=== PATIENT | female | born 1980 | race American Indian/Alaskan Native ===

== ENCOUNTER 2019-05-30 11:52 | Inpatient (IN) | payer OTHER ==
[2019-05-30 13:35] LABS: Bilirubin,Urine NEG (Negative); Blood,Urine NEG (Negative); Color,Urine Yellow (Yellow); Mucus,Urine FEW /HPF; Protein,Urine <15 mg/dL mg/dL (Negative); WBC,Urine < 1.0 /HPF (0.0-6.0)
[2019-05-30 13:39] LABS: Hematocrit 36.3 % (30.3-42.9); Hemoglobin 12.3 gm/dl (10.1-14.3); Mean Corpuscular HGB Conc 34 % (30-34); Mean Corpuscular Volume 94 fl (79-97); Platelet Count 201 K/mm3 (140-440); Red Blood Count 3.88 M/mm3 (3.65-5.03); Red Cell Distribution Width 14.1 % (13.2-15.2)
[2019-05-30 13:57] LABS: Alanine Aminotransferase 11 units/L (7-56); Uric Acid 5.4 mg/dL (3.5-7.6)
[2019-05-30] MEDS ORDERED: NALOXONE 0.4 MG/1 ML INJ IV PRN ×2 (15:56→19:24)
[2019-05-30] MEDS ORDERED: WITCH HAZEL/ GLYCERIN PAD TP PRN ×2 (15:56→19:24)
[2019-05-30] MEDS ORDERED: LANOLIN/ZINC/DIMETHICONE (LANSINOH) 7 GM TP PRN ×2 (15:56→19:24)
[2019-05-30] MEDS ORDERED: OXYTOCIN 20 UNIT/1000ML DRIP 20 UNITS/1,000 ML BAG IV SCH ×3 (16:00→20:00)
[2019-05-30] MEDS ORDERED: BICITRA ORAL LIQD 30ML PO ONE (16:01)
[2019-05-30] MEDS ORDERED: METOCLOPRAMIDE 10 MG/2 ML INJ IV ONE (16:01)
[2019-05-30] MEDS ORDERED: FAMOTIDINE 20 MG/2 ML INJ IV ONE (16:01)
--- NOTE | 2019-05-30 16:59 | Anesthesia Day of Surgery ---
Anesthesia Day of Surgery - Day of Surgery Patient Examined: Yes Patient H&P Reviewed: Yes Patient is NPO: Yes
--- NOTE | 2019-05-30 16:59 | Anesthesia Consultation ---
Anesthesia Consult and Med Hx Date of service: 05/30/19 - Airway Anesthetic Teeth Evaluation: Poor ROM Head & Neck: Adequate Mental/Hyoid Distance: Adequate Mallampati Class: Class II Intubation Access Assessment: Probably Good - Pulmonary Exam CTA: Yes - Cardiac Exam Cardiac Exam: RRR - Pre-Operative Health Status ASA Pre-Surgery Classification: ASA2 Proposed Anesthetic Plan: Spinal - Pulmonary Hx Asthma: No - Cardiovascular System Hx Hypertension: No - Central Nervous System Hx Seizures: No Hx Psychiatric Problems: No - Endocrine Hx Renal Disease: No Hx Hypothyroidism: No Hx Hyperthyroidism: No - Hematic Hx Anemia: No Hx Sickle Cell Disease: No - Other Systems Hx Alcohol Use: No
[2019-05-30] MEDS ORDERED: LACTATED RINGERS 1,000 ML IV SCH (17:00)
[2019-05-30] MEDS ORDERED: ceFAZolin/Water 2 GM/20 ML 2 GM/20 ML SYRINGE IV NR (17:00)
[2019-05-30 17:09] LABS: Basophils % (Auto) 0.3 % (0.0-1.8); Eosinophils % (Auto) 1.1 % (0.0-4.3); Hematocrit 39.6 % (30.3-42.9); Hemoglobin 13.3 gm/dl (10.1-14.3); Lymphocytes # (Auto) 1.9 K/mm3 (1.2-5.4); Mean Corpuscular HGB Conc 34 % (30-34); Mean Corpuscular Volume 94 fl (79-97); Monocytes # (Auto) 0.4 K/mm3 (0.0-0.8); Monocytes % (Auto) 9.6 % (0.0-7.3); Platelet Count 215 K/mm3 (140-440)
--- NOTE | 2019-05-30 17:35 | History and Physical Report ---
History of Present Illness Date of examination: 05/30/19 Chief complaint: Repeat C Section History of present illness: Pt is a 38yo BF EDC 06/05/19; EGA 39 1/7 weeks presents to L&D from the office due to elevated BP's - 144/99 and having irregular contractions. She was scheduled for a Repeat C Section in 3 days, but will proceed with a Repeat C Section today. She received care at [facility] since 8 weeks and co-managed by [facility] for AMA and previous C Section. records are available and GBS is Negative. Past History Past Medical History: hypertension Past Surgical History: appendectomy, BUNDLER/uterine surgery (Laparoscopy), section BUNDLER History: herpes (on suppression) Family/Genetic History: none Social history: no significant social history, single - Obstetrical History Expected Date of Delivery: 06/05/19 Actual Gestation: 39 Week(s) 1 Day(s) : 3 Medications and Allergies Allergies Allergy/AdvReac Type Severity Reaction Status Date / Time No Known Allergies Allergy Verified 05/30/19 12:56 Active Meds: Active Medications Oxytocin/Sodium Chloride (Pitocin/Ns 20 Unit/1000ml Drip) 20 units in 1,000 mls @ 250 mls/hr IV DIRECT LILIBETH Oxytocin/Sodium Chloride (Pitocin/Ns 20 Unit/1000ml Drip) 20 units in 1,000 mls @ 0 mls/hr IV TITR LILIBETH Lactated Ringer's (Lactated Ringers) 1,000 mls @ 2,250 mls/hr IV PREOP LILIBETH Stop: 05/31/19 17:27 Cefazolin Sodium (Ancef/Sterile Water 2 Gm/20 Ml) 2 gm in 20 mls @ 80 mls/hr IV PREOP NR; Protocol Stop: 05/30/19 23:59 Multi-Ingredient Ointment (Lansinoh) 1 applic TP PRN PRN PRN Reason: dryness/cracking Naloxone HCl (Naloxone) 0.1 mg IV Q2MIN PRN PRN Reason: Res Rate </= 8 or 02 SAT < 92% Sodium Chloride (Sodium Chloride Flush Syringe 10 Ml) 10 ml IV PRN NR Stop: 05/31/19 15:59 Witch Nicole/Glycerin (Tucks Pad) 1 each TP PRN PRN PRN Reason: Hemorrhoids/cleansing/soothing Review of Systems All systems: negative - Vital Signs Vital signs: Vital Signs Pulse BP 67 140/94 05/30/19 12:33 05/30/19 12:33 Temp Pulse Resp BP Pulse Ox 98 F 73 20 163/81 05/30/19 12:56 05/30/19 17:23 05/30/19 12:56 05/30/19 17:23 - Physical Exam Breasts: Positive: deferred Cardiovascular: Regular rate Lungs: Positive: Clear to auscultation Abdomen: Positive: normal appearance Genitourinary (Female): Positive: normal external genitalia Vagina: Positive: normal moisture Uterus: Positive: enlarged Extremities: Positive: normal - Obstetrical FHR: category 1 Uterine Contraction Monitor Mode: External Uterine Contraction Pattern: Irregular Uterine Tone Measurement Phase: Contraction Uterine Contraction Intensity: Mild Results Result Diagrams: 05/30/19 16:27 05/30/19 13:19 Abnormal lab results 05/30/19 05/30/19 05/30/19 Range/Units 13:19 13:19 16:27 WBC 4.0 L 4.4 L (4.5-11.0) K/mm3 Lymph % (Auto) 43.0 H (13.4-35.0) % [place] % (Auto) 9.6 H (0.0-7.3) % Creatinine 0.5 L (0.7-1.2) mg/dL All other labs normal. Assessment and Plan - Patient Problems (1) 39 weeks gestation of Onset Date: 05/30/19 Current Visit: Yes Status: Acute Plan to address problem: A: IUP @ 39 1/7 weeks Previous C Section induced hypertension AMA P: Admit to L&D for Repeat C Section Manage elevated BP's (2) Previous section Onset Date: 05/30/19 Current Visit: Yes Status: Chronic (3) PIH ( induced hypertension) Onset Date: 05/30/19 Current Visit: Yes Status: Acute Qualifiers: Trimester: third trimester Qualified Code(s): O13.3 - Gestational [-induced] hypertension without significant proteinuria, third trimester (4) AMA (advanced maternal age) multigravida 35+ Onset Date: 05/30/19 Current Visit: Yes Status: Chronic Qualifiers: Trimester: third trimester Qualified Code(s): O09.523 - Supervision of elderly multigravida, third trimester
[2019-05-30] MEDS ORDERED: SODIUM CHLORIDE 0.9% IRR 1,500 ML BOTTLE IR ONE (18:00)
[2019-05-30] MEDS ORDERED: DEXMEDETOMIDINE 200 MCG/2 ML VIAL IV ONE (18:00)
[2019-05-30] MEDS ORDERED: BUPIVACAINE/PF (0.5%) 5 MG/1 ML 30 ML VIAL INFILTRATI ONE (18:00)
[2019-05-30] MEDS ORDERED: WATER FOR IRRIG STERILE 1,500 ML BOTTLE IR ONE (18:00)
[2019-05-30] MEDS ORDERED: OXYTOCIN 10 UNIT/1 ML INJ ONE (18:00)
[2019-05-30] MEDS ORDERED: KETOROLAC 30 MG/1 ML INJ ONE (18:00)
[2019-05-30] MEDS ORDERED: PHENYLEPHRINE/NS 1,000 MCG/10 ML SYRINGE (OR USE) IV ONE (18:09)
--- NOTE | 2019-05-30 18:48 | Operative Report ---
Operative Report Operative Report: Date of procedure: 05/30/2019 Pre-operative diagnosis: 1. Intrauterine at 39 1/7 weeks 2. Previ ous C Section 3. induced Hypertension 4. AMA Post-operative diagnosis: same Procedure name(s): Repeat low transverse section Surgeon: Adan Gaines MD Staffing Program Manager: None Anesthesia: Spinal anesthesia by León Reed CRNA EBL: 800 mL's Findings: A 3286 gm female infant Apgars 8 at 1 minute 9 at 5 minutes. Clear amniotic fluid. Normal uterus. Normal tubes and ovaries bilaterally. Procedure: After the patient was prepped and draped in usual sterile fashion, and after satisfactory level of spinal anesthesia was obtained, the skin knife was used to make a transverse skin incision through the previous skin scar. The incision was incised down to layer of the fascia, which was nicked in the midline and extended laterally using the Bovie cautery. The rectus muscles were dissected off the rectus fascia both superiorly and inferiorly. The rectus bellies in the midline, and the peritoneum was entered under direct visualization. The peritoneal incision was extended superiorly and inferiorly. A bladder flap was created and the bladder blade was then placed. The uterus was scored in a curvilinear linear fashion, entered in the midline revealing clear amniotic fluid. The infant's head was delivered onto the surgical field, and the oropharynx and nasopharynx were bulb suctioned. The rest of the 's body was delivered, cord was doubly clamped and cut and the infant was handed to the awaiting respiratory team. Cord blood was then obtained. The placenta was manually removed from the uterus, and the uterus removed from its normal anatomical position. After gentle uterine lavage, the incision was inspected and found to be without extensions. It was then closed in 2 layers using 0 Vicryl suture in a running interlocking fashion, the second layer imbricating the first. After good hemostasis was achieved, copious amounts or irrigation was performed, and the gutters were suctioned free of blood and blood clots. The Tisseal sealant was sprayed across the uterine incision and excellent hemostasis was assured. The peritoneum was re-approximated using 3-0 Vicryl suture in a running interlocking fashion, and then the rectus muscles were re-approximated using 3-0 Vicryl suture in a [id number] configuration. The fascia was then re-approximated using 0 Vicryl suture in running interlocking fashion. The subcutaneous layer was made hemostatic using Bovie cautery, and the skin edges re-approximated using 4-0 Vicryl suture in a sub- cuticular fashion. Patient tolerated the procedure well was transported to recovery in stable condition.
--- NOTE | 2019-05-30 19:03 | Post Anesthesia Evaluation ---
- Post Anesthesia Evaluation Patient Participated: Yes Airway Patent: Yes Stable Respiratory Function: Yes Nausea/Vomiting: No Temp > 96.8F: Yes Pain Manageable: Yes Adequeate Hydration: Yes Anesthesia Complications: No Block Receding Appropriately: Yes
[2019-05-30] MEDS ORDERED: NalbUPHINE 10 MG/1 ML INJ IV PRN (19:04)
[2019-05-30] MEDS ORDERED: ONDANSETRON 4 MG/2 ML INJ IV PRN (19:24)
[2019-05-30] MEDS ORDERED: HYDROCORTISONE 25 MG RECTAL SUPP PR PRN (19:24)
[2019-05-30] MEDS ORDERED: SIMETHICONE 80 MG CHEW TAB PO PRN (19:24)
[2019-05-30] MEDS ORDERED: HYDROcodone/ACETAMINOPHEN 5-325 MG TAB PO PRN (19:24)
[2019-05-30] MEDS ORDERED: D5W/LACTATED RINGERS 1,000 ML IV SCH (20:00)
[2019-05-30] MEDS: hydrALAZINE 20 MG/1 ML INJ IV PRN (20:09)
[2019-05-30] MEDS: ACETAMINOPHEN 325 MG TAB PO SCH (20:10)
[2019-05-30] MEDS: KETOROLAC 30 MG/1 ML INJ IV PRN (22:53)
[2019-05-31] MEDS ORDERED: KETOROLAC 30 MG/1 ML INJ IV SCH
[2019-05-31] MEDS: ACETAMINOPHEN 325 MG TAB PO SCH (01:10)
[2019-05-31] MEDS: ceFAZolin/NS 1 GM/50 ML 1 GM/50 ML BAG IV SCH ×2 (01:55→10:00)
[2019-05-31] MEDS: KETOROLAC 30 MG/1 ML INJ IV PRN (05:03)
[2019-05-31] MEDS ORDERED: TETANUS,DIPH,PERTUSS(ACELL) VACCINE 0.5 ML SYRINGE IM ONE (06:00)
[2019-05-31] MEDS ORDERED: MEASLES, MUMPS & RUBELLA 12,500 UNIT/0.5 ML VACCINE SUB-Q ONE (06:00)
[2019-05-31] MEDS: oxyCODONE /ACETAMINOPHEN 5-325MG TAB PO PRN ×4 (06:15→22:38)
[2019-05-31 08:13] LABS: Hematocrit 33.1 % (30.3-42.9); Hemoglobin 11.2 gm/dl (10.1-14.3)
[2019-05-31] MEDS: FERROUS SULFATE 325 MG TAB PO SCH (10:00)
[2019-05-31] MEDS: PRENATAL VIT27-FE FUMARATE-FOLIC ACID VIT TAB PO SCH (10:00)
--- NOTE | 2019-05-31 10:16 | Progress Note ---
Assessment and Plan - Patient Problems (1) S/P repeat low transverse Current Visit: Yes Status: Acute Plan to address problem: Continue routine PP orders Keep dressing clean, dry and intact Remove dressing on POD 2 Anticipate d/c home in 48 hrs (2) Hypertension Current Visit: Yes Status: Acute Qualifiers: Hypertension type: essential hypertension Qualified Code(s): I10 - Essential (primary) hypertension Plan to address problem: Continue Labetelol 200mg po BID Continue to monitor B/Ps per protocol Notify provider for any elevated B/Ps >160/100 Subjective - Subjective Date of service: 05/31/19 Principal diagnosis: S/P Repeat C/S; HTN Interval history: See admission H & P; OB operative note and PP progress notes Patient reports: appetite normal, voiding normally, pain well controlled (with medications), flatus, ambulating normally, no bowel movement : doing well, bottle feeding Objective - Vital Signs Latest vital signs: Vital Signs Temp Pulse Resp BP BP Pulse Ox 05/31/19 08:20 97.8 F 69 18 144/85 05/31/19 06:15 20 05/31/19 05:03 20 05/31/19 04:30 98.7 F 71 18 140/84 05/31/19 01:43 98.7 F 78 18 148/93 05/31/19 01:10 20 05/30/19 22:53 20 05/30/19 22:08 88 150/94 05/30/19 21:20 97.8 F 88 20 150/94 05/30/19 20:10 12 05/30/19 20:09 68 147/91 05/30/19 20:00 59 L 15 147/91 99 05/30/19 19:40 60 13 148/83 99 05/30/19 19:25 65 14 127/81 99 05/30/19 19:10 60 12 120/81 98 05/30/19 19:05 63 12 128/80 100 05/30/19 19:00 98.0 F 82 11 L 119/81 99 05/30/19 17:23 73 163/81 05/30/19 16:59 67 142/85 05/30/19 16:32 75 173/101 05/30/19 16:30 98 F 18 05/30/19 16:07 66 156/80 05/30/19 15:57 75 148/91 05/30/19 15:51 65 145/88 05/30/19 15:36 66 141/93 05/30/19 15:21 68 150/90 05/30/19 15:07 69 153/83 05/30/19 14:53 67 151/91 05/30/19 14:37 56 L 146/87 05/30/19 14:21 62 139/80 05/30/19 14:08 62 133/88 05/30/19 13:51 72 143/90 05/30/19 13:38 72 143/86 05/30/19 13:21 71 136/82 05/30/19 13:11 81 133/80 05/30/19 13:06 78 144/100 05/30/19 12:56 98 F 68 20 127/93 127/93 05/30/19 12:51 70 148/96 05/30/19 12:33 67 140/94 Intake and Output 05/30/19 05/31/19 05/31/19 23:59 07:59 15:59 Intake Total 1000 300 240 Output Total 250 1000 200 Balance 750 -700 40 Intake: IV 1000 Oral 240 Intake, Free Water 300 Output: Urine 250 1000 200 Indwelling 200 Indwelling Catheter 1000 Void 200 Other: Total, Intake Amount 240 Total, Output Amount 1000 200 # Voids Void 1 - Exam Breasts: Present: normal Cardiovascular: Present: Regular rate Lungs: Present: Normal air movement Abdomen: Present: soft, tenderness Uterus: Present: firm, fundal height at umbilicus Extremities: Present: normal Deep Tendon Reflex Grade: Normal +2 Incision: Present: dressed (no shawdow drainage or bleeding noted) - Labs Labs: Abnormal lab results 05/30/19 05/30/19 05/30/19 Range/Units 13:19 13:19 16:27 WBC 4.0 L 4.4 L (4.5-11.0) K/mm3 Lymph % (Auto) 43.0 H (13.4-35.0) % [place] % (Auto) 9.6 H (0.0-7.3) % Creatinine 0.5 L (0.7-1.2) mg/dL
[2019-05-31] MEDS: IBUPROFEN 800 MG TAB PO PRN (11:05)
[2019-06-01] MEDS: IBUPROFEN 800 MG TAB PO PRN ×2 (03:06→19:49)
[2019-06-01] MEDS: oxyCODONE /ACETAMINOPHEN 5-325MG TAB PO PRN ×2 (06:28→12:20)
[2019-06-01] MEDS: FERROUS SULFATE 325 MG TAB PO SCH (10:00)
--- NOTE | 2019-06-01 12:23 | Progress Note ---
Assessment and Plan A: POD #2 Elevated BP (158/100) Poor Pain Control P: Follow Routine Orders Continue Labebtolol 200mg PO BID D/C Percocet 5/325mg PO q 6hours [place] 5/325mg PO q 4 hours Subjective - Subjective Date of service: 06/01/19 Principal diagnosis: S/P Repeat C/S; HTN Patient reports: appetite normal, voiding normally, flatus, bowel movement, pain poorly controlled, ambulating normally, other (Denies all s/s of PIH) : doing well, bottle feeding Objective - Vital Signs Latest vital signs: Vital Signs Temp Pulse Resp BP BP Pulse Ox 06/01/19 07:58 98.2 F 63 18 133/90 06/01/19 06:28 18 06/01/19 03:06 18 05/31/19 23:55 98.5 F 74 20 146/55 98 05/31/19 22:38 18 05/31/19 22:28 67 142/86 05/31/19 15:45 98.4 F 68 20 151/52 Intake and Output 05/31/19 06/01/19 06/01/19 22:59 06:59 14:59 Intake Total 480 480 480 Output Total 300 Balance 180 480 480 Intake: Oral 480 480 480 Output: Urine 300 Void 300 Other: Total, Intake Amount 240 240 480 Total, Output Amount 300 # Voids Void 1 - Exam Breasts: Present: normal Cardiovascular: Present: Regular rate Lungs: Present: Clear to auscultation, Normal air movement Abdomen: Present: normal appearance, soft, normal bowel sounds Uterus: Present: normal, firm, fundal height at umbilicus Extremities: Present: normal Incision: Present: normal, dry, intact
[2019-06-01] MEDS: PRENATAL VIT27-FE FUMARATE-FOLIC ACID VIT TAB PO SCH (12:29)
[2019-06-01] MEDS ORDERED: medroxyPROGESTERone ACETATE 150 MG/ML SYRINGE IM NR (12:30)
[2019-06-01] MEDS: HYDROcodone/ACETAMINOPHEN 5-325 MG TAB PO PRN ×2 (17:12→21:25)
[2019-06-02] MEDS: HYDROcodone/ACETAMINOPHEN 5-325 MG TAB PO PRN ×5 (01:00→19:25)
[2019-06-02] MEDS: IBUPROFEN 800 MG TAB PO PRN ×4 (02:02→23:51)
[2019-06-02] MEDS: FERROUS SULFATE 325 MG TAB PO SCH (09:32)
[2019-06-02] MEDS: PRENATAL VIT27-FE FUMARATE-FOLIC ACID VIT TAB PO SCH (09:33)
--- NOTE | 2019-06-02 12:03 | Progress Note ---
Assessment and Plan A: POD #3 s/p Repeat c/s Labile BPs 140-150/80-90s; Labetalol 200mg BID Pain well controlled Desires discharge P: Follow Routine Orders Increase Labetalol 300mg PO BID Consider discharge this PM if B/ps stable Subjective - Subjective Date of service: 06/02/19 Principal diagnosis: POD#3 S/P Repeat C/S; HTN Patient reports: appetite normal, voiding normally, pain well controlled, flatus, ambulating normally : doing well, bottle feeding Objective - Vital Signs Latest vital signs: Vital Signs Temp Pulse Resp BP BP BP Pulse Ox 06/02/19 09:34 20 06/02/19 09:30 20 06/02/19 07:46 97.8 F 59 L 20 146/90 152/91 100 06/02/19 04:56 18 06/02/19 04:44 64 144/92 100 06/02/19 02:02 20 06/02/19 02:00 18 06/02/19 01:40 97.9 F 63 18 141/78 100 06/02/19 01:00 20 06/01/19 21:24 137/88 06/01/19 21:13 98.0 F 72 20 137/88 100 06/01/19 17:26 98.5 F 69 18 145/88 99 06/01/19 12:09 97.7 F 74 18 158/100 Intake and Output 06/01/19 06/02/19 06/02/19 23:59 07:59 15:59 Intake Total 720 480 240 Balance 720 480 240 Intake: Oral 720 480 240 Other: Total, Intake Amount 240 240 240 # Voids Void 4 1 1 - Exam Breasts: Present: normal Cardiovascular: Present: Regular rate, Normal S1, Normal S2, No murmurs Lungs: Present: Clear to auscultation, Normal air movement Abdomen: Present: normal appearance, soft, normal bowel sounds Vulva: both: normal Uterus: Present: firm, fundal height at umbilicus Extremities: Present: normal Deep Tendon Reflex Grade: Normal +2 Incision: Present: normal, dry, intact (CDI)
[2019-06-02] MEDS: hydrALAZINE 20 MG/1 ML INJ IV PRN (18:25)
[2019-06-03] MEDS: HYDROcodone/ACETAMINOPHEN 5-325 MG TAB PO PRN ×4 (02:29→13:45)
[2019-06-03] MEDS: PRENATAL VIT27-FE FUMARATE-FOLIC ACID VIT TAB PO SCH (10:00)
[2019-06-03] MEDS: FERROUS SULFATE 325 MG TAB PO SCH (10:00)
[2019-06-03 10:09] VITALS: BP 152/77
--- NOTE | 2019-06-03 12:03 | Progress Note ---
Assessment and Plan A: POD #4 s/p Repeat c/s PreE; B/p stable 117/75-153/77; Labetalol 300mg BID Pain well controlled Desires discharge P: Follow Routine Orders Discharge home today Follow-up in 7 days for incision/ BP check Subjective - Subjective Date of service: 06/03/19 Principal diagnosis: POD#4 S/P Repeat C/S; HTN Interval history: see H&P and Operative note Patient reports: appetite normal, voiding normally, pain well controlled, flatus, ambulating normally, no bowel movement : doing well, bottle feeding Objective - Vital Signs Latest vital signs: Vital Signs Temp Pulse Resp BP BP BP Pulse Ox 06/03/19 10:08 152/77 06/03/19 08:11 98.4 F 59 L 18 153/77 06/03/19 06:00 98.7 F 57 L 18 140/78 06/03/19 05:54 20 06/03/19 02:29 18 06/03/19 00:00 98.7 F 66 18 147/66 06/02/19 23:51 20 06/02/19 23:00 69 119/75 06/02/19 22:06 80 140/88 06/02/19 21:20 76 18 140/76 98 06/02/19 20:45 70 18 136/88 99 06/02/19 20:15 74 20 144/86 100 06/02/19 19:30 77 18 132/76 100 06/02/19 19:25 20 06/02/19 19:15 72 20 150/86 100 06/02/19 19:10 72 20 146/86 100 06/02/19 19:05 82 20 150/85 100 06/02/19 19:00 84 20 133/91 100 06/02/19 17:19 20 06/02/19 16:15 98.1 F 60 20 167/92 98 06/02/19 12:03 97.8 F 63 20 155/86 99 Intake and Output 06/02/19 06/03/19 06/03/19 23:59 07:59 15:59 Intake Total 540 300 480 Balance 540 300 480 Intake: Oral 240 480 Intake, Free Water 300 300 Other: Total, Intake Amount 240 480 # Voids Void 1 - Exam Breasts: Present: normal Cardiovascular: Present: Regular rate, Normal S1, Normal S2, No murmurs Lungs: Present: Clear to auscultation, Normal air movement Abdomen: Present: normal appearance, soft, normal bowel sounds. Absent: distention Vulva: both: normal Uterus: Present: firm, fundal height at umbilicus Extremities: Present: normal Deep Tendon Reflex Grade: Normal +2 Incision: Present: normal, dry, intact
--- NOTE | 2019-06-03 12:08 | Discharge Summary ---
Providers - Providers Date of Admission: 05/30/19 11:53 Date of discharge: 06/03/19 Attending physician: MIQUEL KIMBLE MD Primary care physician: MIQUEL KIMBLE MD Hospitalization Reason for admission: IUP at term Delivery: Procedure: repeat low transverse Procedure details: See operative note Incision: normal, dry, intact Other procedures: none complications: other (Elevated B/P) Discharge diagnosis: IUP at term delivered Condition at discharge: Good Disposition: DC-01 TO HOME OR SELFCARE Plan - Discharge Medications Prescriptions: labetaloL [Labetalol 100mg TAB] 300 mg PO BID 30 Days #60 tablet Ibuprofen [Motrin] 800 mg PO Q8HR PRN #30 tablet PRN Reason: Pain, Mild (1-3) Ibuprofen [Motrin 800 MG tab] 800 mg PO Q6H PRN #120 tablet PRN Reason: Pain, Mild (1-3) HYDROcodone/APAP 5-325 [[place] 5-325 mg TAB] 2 each PO Q4H PRN #30 tablet PRN Reason: Pain, Moderate (4-6) oxyCODONE /ACETAMINOPHEN [Percocet 5/325] 1 tab PO Q6HR PRN #30 tablet PRN Reason: Pain - Provider Discharge Summary Activity: routine, no sex for 6 weeks, no heavy lifting 4 weeks, no strenuous exercise Diet: routine Instructions: routine Additional instructions: [] Smoking cessation referral if applicable(refer to patient education folder for contact #) [] Refer to [facility]'s [facility] Booklet Call your doctor immediately for: * Fever > 100.5 * Heavy vaginal bleeding ( >1 pad per hour) * Severe persistent headache * Shortness of breath * Reddened, hot, painful area to leg or breast * Drainage or odor from incision. * Keep incision clean and dry at all times and follow doctor's instructions regarding bathing/showering - Follow up plan Follow up: MIQUEL KIMBLE MD [Primary Care Provider] - 7 Days
== END 2019-06-03 16:05 | disposition home or self-care (01) | DRG 766 ==
LOC: TRG 11:52 → LD 11:53 → OB 20:51
PROVIDERS: ADMIT Obstetrics & Gynecology; ATTEND Obstetrics & Gynecology
PROC: 10D00Z1 Extraction of Products of Conception, Low, Open Approach (ICD-10-PCS; principal; 2019-05-30)
PROC: 3E0234Z Introduction of Serum, Toxoid and Vaccine into Muscle, Percutaneous Approach (ICD-10-PCS; 2019-05-31)
DX: O34.211 Maternal care for low transverse scar from previous cesarean delivery (principal); O14.94 Unspecified pre-eclampsia, complicating childbirth; O13.4 Gestational [pregnancy-induced] hypertension without significant proteinuria, complicating childbirth; Z3A.39 39 weeks gestation of pregnancy; Z37.0 Single live birth; Z90.49 Acquired absence of other specified parts of digestive tract; Z23 Encounter for immunization
CPT/HCPCS: 36415; 81001; 82565; 83615; 84450; 84460; 84550; 85014; 85018; 85025; 85027; 86592; 86850; 86900; 86901; 90471; G0378; C9250; J0360; J0690; J1885; J2370; J2590; J2765; J3490; J7120; J7121